=== PATIENT | female | born 1955 | race Caucasian/White ===

== ENCOUNTER 2019-01-07 11:17 | Emergency (ER) | payer BC, OTHER ==
[~2019-01-07] VITALS: Ht 175.3 cm; Wt 89.4 kg
[2019-01-07] MEDS ORDERED: ZESTRIL20 MG PO (11:34)
[2019-01-07] MEDS ORDERED: FLUVOXAMINE MAL25 MG PO (11:35)
[2019-01-07] MEDS ORDERED: TOPROL XL50 MG PO (11:35)
[2019-01-07] MEDS ORDERED: ZOFRAN ODT4 MG PO (13:32)
[2019-01-07] MEDS ORDERED: IBUPROFEN 800800 M1 PO (13:32)
[2019-01-07] MEDS ORDERED: NORFLEX100 MG PO (13:32)
[2019-01-07 14:14] VITALS: BP 160/89
== END 2019-01-07 14:14 | disposition home or self-care (01) ==
LOC: ER 11:17
DX: S16.1XXA Strain of muscle, fascia and tendon at neck level, initial encounter (principal); S39.012A Strain of muscle, fascia and tendon of lower back, initial encounter; R51 Headache; I10 Essential (primary) hypertension; I48.91 Unspecified atrial fibrillation; V49.49XA Driver injured in collision with other motor vehicles in traffic accident, initial encounter; Y92.89 Other specified places as the place of occurrence of the external cause; Y93.89 Activity, other specified; Y99.8 Other external cause status